=== PATIENT | female | born 1960 | race Caucasian/White ===

== ENCOUNTER 2019-12-16 08:11 | Outpatient (CLI) | payer OTHER, SELFPAY ==
--- NOTE | ~2019-12-16 | MM_ITS ---
EXAMINATION: MM scrn claudia implant BI w jocelyne HISTORY: Screening mammogram TECHNIQUE: Craniocaudal and mediolateral oblique 3-D tomosynthesis images with implant displacement a nd synthetic 2-D images were generated. Craniocaudal and mediolateral oblique views of the breasts wi thout implant displacement were obtained using full field digital mammography. CAD analysis was submi tted and interpreted. COMPARISON: 11/04/2017, 09/25/2016, 06/04/2015 bilateral implant digital screening mammogram examinatio ns BREAST PARENCHYMAL COMPOSITION: There are scattered areas of fibroglandular density. FINDINGS: Status post bilateral augmentation mammoplasty. Again noted is an silicone extravasation on the left. There is no evidence of suspicious mass, calcification, or architectural distortion to smith ggest malignancy in either breast. There has been no suspicious interval change. IMPRESSION: 1. No mammographic evidence of malignancy. 2. Recommend routine screening mammography in one year. BI-RADS Category 2: Benign finding(s). Reviewed, dictated and finalized at location A.
== END 2019-12-16 08:12 | disposition home or self-care (01) ==
PROVIDERS: PCP Student in an Organized Health Care Education/Training Program; Visit Provider Advanced Practice Midwife
DX: Z12.31 Encounter for screening mammogram for malignant neoplasm of breast (principal)
CPT/HCPCS: 77063; 77067

== ENCOUNTER → 2020-08-14 07:47 | Outpatient (CLI) | payer OTHER, SELFPAY ==
--- NOTE | ~2020-08-14 | US_ITS ---
EXAMINATION: US thyroid EXAM DATE: 08/14/2020 08:08 INDICATION: Hypothyroidism . TECHNIQUE: Multiple grayscale and Doppler images of the thyroid were obtained (by a technologist who performed the scan) and subsequently reviewed. Individual nodules and recommendations may be reporte d in accordance with TI-RADS system as designated by the 2017 ACR White Paper TI-RADS committee. Timo phipps is made to prior examination from 03/19/2019. FINDINGS: Right there are lobe measures 4.7 x 2.0 x 1.5 cm, the left measuring 4.1 x 1.4 x 1.2 cm. These measur ements are mildly enlarged. Mildly diffusely heterogeneous thyroid echogenicity with mildly hypervasc ular appearance. There are several right thyroid lobe nodules. There is a right thyroid lobe nodule measuring 8 x 6 x 8 mm, solid (2 points), isoechoic (1 point), w ider than tall, smooth margin, without echogenic foci, category TR3 for this nodule. Another right thyroid lobe nodule measuring 9 x 7 x 8 mm, solid (2 points), hyperechoic (1 point), wi sylvia than tall, smooth margin, without echogenic foci, category TR3 for this nodule. IMPRESSION: 1. Multinodular goiter. 2. Return to clinical follow-up and if additional palpable abnormality develops a repeat ultrasound can be obtained. Reviewed, dictated and finalized at location D. [employer] O[employer] IMPRESSION: 1. Multinodular goiter. 2. Return to clinical follow-up and if additional palpable abnormality develop s a repeat ultrasound can be obtained.
== END ==
PROVIDERS: PCP Student in an Organized Health Care Education/Training Program; Visit Provider Student in an Organized Health Care Education/Training Program
DX: E03.9 Hypothyroidism, unspecified (principal); E04.2 Nontoxic multinodular goiter
CPT/HCPCS: 76536

== ENCOUNTER 2020-12-27 08:01 | Outpatient (CLI) | payer OTHER, SELFPAY ==
--- NOTE | ~2020-12-27 | MM_ITS ---
EXAMINATION: MM scrn claudia implant BI w jocelyne HISTORY: Screening mammogram TECHNIQUE: Craniocaudal and mediolateral oblique 3-D tomosynthesis images with implant displacement a nd synthetic 2-D images were generated. Craniocaudal and mediolateral oblique views of the breasts wi thout implant displacement were obtained using full field digital mammography. CAD analysis was submi tted and interpreted. COMPARISON: 12/16/2019 11/04/2017, 09/25/2016 BREAST PARENCHYMAL COMPOSITION: There are scattered areas of fibroglandular density. FINDINGS: There are chronic findings in the left breast consistent with implant rupture. There is no evidence of suspicious mass, calcification, or architectural distortion to suggest malignancy in eith er breast. There has been no suspicious interval change. IMPRESSION: 1. No mammographic evidence of malignancy. 2. Recommend routine screening mammography in one year. BI-RADS Category 2: Benign finding(s). Reviewed, dictated and finalized at location A.
== END 2020-12-27 08:02 | disposition home or self-care (01) ==
LOC: ANHIMG 08:05
PROVIDERS: PCP Student in an Organized Health Care Education/Training Program; Visit Provider Obstetrics & Gynecology
DX: Z12.31 Encounter for screening mammogram for malignant neoplasm of breast (principal)
CPT/HCPCS: 77063; 77067

== ENCOUNTER 2021-04-15 14:23 | Outpatient (CLI) | payer OTHER, SELFPAY ==
--- NOTE | 2021-04-15 14:28 | ECG_ITS ---
Measurements Intervals [place] Rate: 66 P: 65 GA: 202 QRS: 78 QRSD: 89 T: 65 QT: 397 QTc: 417 Interpretive Statements SINUS RHYTHM BORDERLINE AV CONDUCTION DELAY POSSIBLE LEFT ATRIAL ENLARGEMENT DELAYED PRECORDIAL R/S TRANSITION BASELINE ARTIFACT- I, II, III, AVR, AVL, AVF BORDERLINE ECG Electronically Signed On 04-15-2021 14:53:32 CDT by Odilon Orr D.O.
[2021-04-15 15:20] LABS: Anion Gap 6 mmol/L (8-16); Blood Urea Nitrogen 21 mg/dL (7-17); Calcium 9.5 mg/dL (8.4-10.2); Carbon Dioxide 33 mmol/L (22-30); Chloride 100 mmol/L (98-107); Estimated Glomerular Filt Rate > 60; Glucose 98 mg/dL (65-110); Potassium 3.7 mmol/L (3.4-5.0); Sodium 139 mmol/L (137-145)
== END 2021-04-15 14:24 | disposition home or self-care (01) ==
LOC: ANHSURGERY 14:25
PROVIDERS: Anesthesiology; PCP Student in an Organized Health Care Education/Training Program; Visit Provider Surgery Plastic and Reconstructive Surgery
DX: Z01.818 Encounter for other preprocedural examination (principal); Z79.899 Other long term (current) drug therapy; I10 Essential (primary) hypertension; I45.9 Conduction disorder, unspecified
CPT/HCPCS: 36415; 80048; 93005

== ENCOUNTER 2021-04-18 01:22 | Day surgery (SDC) | payer OTHER, SELFPAY ==
[2021-04-10 11:35] VITALS: BMI 22.8
--- NOTE | 2021-04-17 10:16 | P.PNAN_ITS ---
Anes - Initial Pre Proc Eval Procedure: Operation Date: 04/18/21 07:30 Proposed Procedures p Bilateral Breast Implant Exchange with Capsulectomy - Woodrow Duncan MD Date/Time: 04/17/21 10:16 Surgeon: Woodrow Duncan MD Pre Op Diagnosis: bilat breast implant rupture Patient Data Age: 60 Gender: F Height: 1.57 m Weight: 56.7 kg Allergies Allergy/AdvReac Type Severity Reaction Status Date / Time No Known Allergies Allergy Verified 04/18/21 06:16 Home Medications Medication Instructions Recorded Confirmed Type levothyroxine 100 mcg tablet 100 mcg PO DAILY 02/01/21 04/18/21 History lisinopril 10 1 tablet PO DAILY 02/01/21 04/18/21 History mg-hydrochlorothiazide 12.5 mg tablet docusate sodium 100 mg capsule 100 mg PO DAILY #14 cap 04/02/21 04/10/21 Rx ondansetron HCl 4 mg tablet 4 mg PO Q8H #21 tablet 04/02/21 04/10/21 Rx oxycodone-acetaminophen 5 mg-325 1 tablet PO Q6H PRN #15 tablet 04/03/21 04/10/21 Rx mg tablet multivitamin 1 tablet PO DAILY 04/10/21 04/18/21 History Patient hx anesthesia problems: post op nausea/vomiting Family hx anesthesia problems: none Results Review: All pre-operative results and documents have been reviewed as part of the pre-operative evaluation. [facility] Past Medical History Medical History (Updated 04/18/21 @ 06:31 by Rodrick Suazo DO) History of actinic keratosis Hypertension Hypothyroidism Family History Family History Father Hypertension Family history of lung cancer Grandparent Breast cancer Social History Social History Smoking status: Never smoker Alcohol intake: never Alcohol use details: RARE Substance use: never Living arrangements: with family Spiritual care concerns: No Anes - Eval Final PreProcedure Day of Procedure 04/17/21 10:16 Patient weight: normal Heart: regular rate and rhythm Lungs: clear to auscultation and normal air movement Airway: Mallampati scale class II Neurological: alert and oriented Last oral intake: >/= 8 hours ASA classification: II Emergent: no Anesthetic plan: proceed Anesthesia type and monitoring: general LMA and standard monitoring Results Review: All pre-operative results and documents have been reviewed as part of the pre-operative evaluation. Informed Consent: The patient's anesthetic plan and its attendant risks and benefits were discussed with the patient/family/POA. Questions were solicited and answers provided to the satisfaction of the patient/family/POA.
[2021-04-18] VITALS (8 sets, daily range): BP systolic 94–127; BP diastolic 54–75; PULSE 50–82; RESP 12–20; TEMP 36.5–36.6; O2SAT 95–100; BMI 23.8
[2021-04-18] MEDS: LACTATED RINGERS 1,000 ML 30 ML IV CONT ×2 (06:28→08:53)
[2021-04-18] MEDS: SCOPOLAMINE 1.5 MG PATCH TRANSDERM (06:31)
--- NOTE | 2021-04-18 07:06 | WPDHPUPDATE1 ---
History and Physical Update Update Date/Time: 04/18/21 07:06 History and Physical has been reviewed, including an updated exam of the patient. There are NO changes in the patient's condition. Risks, benefits, and alternatives have been discussed and questions answered. Patient agrees to proceed with procedure.
[2021-04-18] MEDS: ceFAZolin 2 GM/D5W 50 ML 2 GM/50 ML BAG IVPB (07:24)
[2021-04-18] MEDS: LIDO 1%/EPINEPHRINE 1:100,000 50 ML VIAL 60 ML INFILTRATE (07:32)
--- NOTE | 2021-04-18 07:41 | SUR.PREOP ---
0715; RN IN ROOM WHILE DR RAMIREZ MARKED PT
--- NOTE | 2021-04-18 08:57 | P.OP_ITS ---
Procedure Note - Detailed Date of Procedure 04/18/21 Pre-op Diagnosis bilat breast implant rupture Post-op Diagnosis same Procedure Performed Bilateral ruptured breast implant exchange Surgeon Woodrow Duncan MD Anesthesia general Findings Bilateral breast implants were ruptured. The left implant was extracapsular. Previous implants did not identify brand or size. We do have her old operative reports available indicating Mcfarland 225cc. Implants were textured. Replacement implants Bilateral Mcfarland MemoryGel 275cc Right - REF# [id number] SN [id number] Left - REF# [id number] Description of Procedure Patient was marked in the preoperative holding area with her verification. She was taken to the operating room placed supine on the operating room table. Anesthesia provided by anesthesiology and prepped and draped in a standard steri le fashion. Surgical time-out was taken. 1% lidocaine and 0.25% Marcaine with epinephrine was used anesthetize locally. Tegaderm nipple Coyne were placed. Fifteen blade used to excise the previous scar bilateral. Dissection was continued down until the capsule was identified and this was completely removed and sent to pathology. Findings as above. I copiously irrigated with saline/bacitracin solution on TUR tubing. This was over 3 L. I verified strict hemostasis. Changed gloves. I then again irrigated with saline solution. Verified strict hemostasis. Irrigated with triple ant ibiotic Betadine solution. Using a no-touch technique and a Melo funnel the implants were introduced into the pocket. This was closed using 2-0 Vicryl followed by 3-0 Monocryl and a running subcuticular 4-0 Monocryl and tissue glue. Dressings were placed. Patient was woken taken to the PACU without difficulty. All instrument sponge counts were correct at the end of the case. Estimated Blood Loss 50 Drains No Packing No Pathology yes (Bilateral breast capsules.) Complications No immediate complications Condition stable Disposition PACU
[2021-04-18] MEDS: fentaNYL CITRATE INJ (*CRX) 100 MCG/2 ML VIAL 25 MCG IV PUSH ×3 (09:10→09:36)
== END 2021-04-18 10:46 | disposition home or self-care (01) ==
PROVIDERS: PCP Student in an Organized Health Care Education/Training Program; Visit Provider Surgery Plastic and Reconstructive Surgery
PROC: (CPT 19342; principal; 2021-04-18 07:30)
DX: T85.41XA Breakdown (mechanical) of breast prosthesis and implant, initial encounter (principal); Y83.8 Other surgical procedures as the cause of abnormal reaction of the patient, or of later complication, without mention of misadventure at the time of the procedure; I10 Essential (primary) hypertension; E03.9 Hypothyroidism, unspecified
CPT/HCPCS: 19371; 19325; 88304; A9270; J0690; J1100; J1580; J2405; J2704; J3010; J7120

== ENCOUNTER → 2021-07-29 16:48 | Outpatient (REF) | payer OTHER, SELFPAY | LOC: ANHLAB 16:48 | PROVIDERS: PCP Student in an Organized Health Care Education/Training Program; Visit Provider Nurse Practitioner | DX: D49.2 Neoplasm of unspecified behavior of bone, soft tissue, and skin (principal) | CPT/HCPCS: 88305; 88342 ==

== ENCOUNTER → 2021-09-03 13:21 | Outpatient (REF) | payer OTHER, SELFPAY | LOC: ANHLAB 13:21 | PROVIDERS: PCP Student in an Organized Health Care Education/Training Program; Visit Provider Nurse Practitioner | DX: D49.2 Neoplasm of unspecified behavior of bone, soft tissue, and skin (principal) | CPT/HCPCS: 88305 ==